=== PATIENT | male | born 1960 | race Asian ===

== ENCOUNTER 2017-06-03 14:58 | Emergency (ER) | payer SELFPAY ==
[~2017-06-03] VITALS: Ht 188 cm; Wt 96.8 kg
[2017-06-03] MEDS ORDERED: DIPH,PERTUSS(ACELL),TET VAC/PF 0.5 ML IM-VACC ONE ×2 (15:30→15:49)
[2017-06-03] MEDS ORDERED: LIDOCAINE 1%, 20ML SQ ONE (15:30)
[2017-06-03] MEDS ORDERED: LIDOCAINE 1%, 20ML ONE (15:49)
[2017-06-03 16:42] VITALS: BP 142/90
[2017-06-03] MEDS ORDERED: BACITRACIN ZINC OINT 500U/GM, 0.9 GM ONE (16:47)
== END 2017-06-03 17:05 | disposition home or self-care (01) ==
LOC: ED 16:59
DX: S91.114A Laceration without foreign body of right lesser toe(s) without damage to nail, initial encounter (principal); I10 Essential (primary) hypertension; W22.09XA Striking against other stationary object, initial encounter; Y93.89 Activity, other specified; Y99.8 Other external cause status; Y92.002 Bathroom of unspecified non-institutional (private) residence as the place of occurrence of the external cause
CPT/HCPCS: 12001; 90471; 90715